=== PATIENT | male | born 1965 | race Caucasian/White ===

== ENCOUNTER 2024-06-16 16:40 | Outpatient (REF) | payer MEDICAID, SELFPAY ==
[2024-06-16 14:48] LABS: ALT 108 U/L (16-63); AST 49 U/L (15-37); Albumin 4.1 g/dL (3.4-5.0); Alkaline Phosphatase 102 U/L (46-116); Anion Gap 8.2 mmol/L (3-11); BUN 9 mg/dL (7-18); Bilirubin, Total 0.28 mg/dL (0.2-1.0); CO2 29.8 mmol/L (21.0-32.0); Chloride 100 mmol/L (98-107); Glucose 143 mg/dL (74-106); Sodium 138 mmol/L (136-145); TSH (W/Ref FT4) 0.03 uIU/mL (0.36-3.74); Total Protein 8.1 g/dL (6.4-8.2)
[2024-06-16 14:57] LABS: Hemoglobin A1C 7.6 % (<5.7)
[2024-06-16 22:49] LABS: PSA, Screening 0.4 ng/mL (<=3.5)
== END 2024-06-16 16:41 | disposition home or self-care (01) ==
LOC: NCHCN 16:40
PROVIDERS: PCP Family Medicine; Visit Provider Family Medicine
DX: I10 Essential (primary) hypertension (principal); E11.21 Type 2 diabetes mellitus with diabetic nephropathy
CPT/HCPCS: 80053; 84153; 83036; 84439; 84443

== ENCOUNTER 2024-09-07 08:37 | Outpatient (REF) | payer MEDICAID, SELFPAY ==
[2024-09-07 15:55] LABS: HCT 40.8 % (40.0-50.0); HGB 13.4 g/dL (13.5-17.5); MCH 29.3 pg (27.0-33.0); MCHC 32.8 % (32.0-36.0); MCV 89 fL (80-95); MPV 9.8 fL (8.0-11.0); Platelet Count 456 10^3/uL (130-400); RBC 4.57 10^6/uL (4.36-5.78); RDW 14.2 % (11.8-14.1); RDW-SD 45.9 fL; WBC 7.53 10^3/uL (4.4-10.8)
[2024-09-07 16:51] LABS: ALT 86 U/L (16-63); AST 38 U/L (15-37); Albumin 3.7 g/dL (3.4-5.0); Alkaline Phosphatase 74 U/L (46-116); BUN 14 mg/dL (7-18); Bilirubin, Total 0.24 mg/dL (0.2-1.0); CREATININE 1.1 mg/dL (0.70-1.30); Calculated LDL 44 mg/dL (<100); Chloride 102 mmol/L (98-107); Cholesterol 102 mg/dL (<200); Estimated GFR 77.33 (mL/min/1.73m2); Glucose 125 mg/dL (74-106); HDL Cholesterol 41 mg/dL (40-60); Potassium 4.3 mmol/L (3.5-5.1); Sodium 137 mmol/L (136-145); TSH 0.64 uIU/mL (0.36-3.74); Triglyceride 85 mg/dL (<150)
[2024-09-07 17:21] LABS: Hemoglobin A1C 7.3 % (<5.7)
== END 2024-09-07 08:38 | disposition home or self-care (01) ==
LOC: NCHCN 08:37
PROVIDERS: PCP Family Medicine; Visit Provider Family Medicine
DX: I73.9 Peripheral vascular disease, unspecified (principal); E11.21 Type 2 diabetes mellitus with diabetic nephropathy; E03.9 Hypothyroidism, unspecified; I10 Essential (primary) hypertension
CPT/HCPCS: 80053; 80061; 85027; 83036; 84443

== ENCOUNTER 2024-09-14 12:17 | Outpatient (REF) | payer MEDICAID, SELFPAY ==
[2024-09-14 15:42] LABS: COMMENT (LAB VIEW ONLY) 137.93 mg/dL; Microalb ug/mg Crea 4.5 ug/mg Cr
== END 2024-09-14 12:18 | disposition home or self-care (01) ==
LOC: NCHCN 12:17
PROVIDERS: PCP Family Medicine; Visit Provider Family Medicine
DX: E11.21 Type 2 diabetes mellitus with diabetic nephropathy (principal)
CPT/HCPCS: 82043; 82570

== ENCOUNTER 2024-12-08 14:02 | Outpatient (REF) | payer MEDICAID, SELFPAY ==
[2024-12-08 15:05] LABS: Abs Immature Grans 0.07 10^3/uL (0.0-0.06); Absolute Basophil Count 0.08 10^3/uL (0.0-0.2); Absolute Lymphocyte Count 2.68 10^3/uL (1.2-3.4); Absolute Monocyte Count 0.27 10^3/uL (0.1-0.8); Absolute Neutrophil Count 5.51 10^3/uL (1.2-6.7); Basophils % 0.9 %; Eosinophils % 1.1 %; HCT 35.8 % (40.0-50.0); HGB 11.4 g/dL (13.5-17.5); Immature Grans % 0.8 %; Lymphocytes % 30.8 %; MCH 29.2 pg (27.0-33.0); MCHC 31.8 % (32.0-36.0); MCV 92 fL (80-95); MPV 9.6 fL (8.0-11.0); Monocytes % 3.1 %; Neutrophils % 63.3 %; RBC 3.91 10^6/uL (4.36-5.78); RDW 15.9 % (11.8-14.1); RDW-SD 53.7 fL; WBC 8.71 10^3/uL (4.4-10.8)
[2024-12-08 15:49] LABS: ALT 89 U/L (16-63); AST 51 U/L (15-37); Albumin 3.1 g/dL (3.4-5.0); Alkaline Phosphatase 177 U/L (46-116); Anion Gap 10.8 mmol/L (3-11); BUN 11 mg/dL (7-18); Bilirubin, Direct 0.1 mg/dL (0.0-0.2); Bilirubin, Total 0.3 mg/dL (0.2-1.0); CO2 27.2 mmol/L (21.0-32.0); Chloride 97 mmol/L (98-107); Estimated GFR 86.16 (mL/min/1.73m2); Glucose 161 mg/dL (74-106); Potassium 4.7 mmol/L (3.5-5.1); Sodium 135 mmol/L (136-145); Total Protein 7.4 g/dL (6.4-8.2)
[2024-12-08 16:21] LABS: Platelet Count 1319 10^3/uL (130-400)
== END 2024-12-08 14:03 | disposition home or self-care (01) ==
LOC: LBN 14:02
PROVIDERS: PCP Family Medicine; Visit Provider Physician Assistant
DX: K35.33 Acute appendicitis with perforation, localized peritonitis, and gangrene, with abscess (principal); Z48.03 Encounter for change or removal of drains; I10 Essential (primary) hypertension; E11.9 Type 2 diabetes mellitus without complications; I73.9 Peripheral vascular disease, unspecified
CPT/HCPCS: 80053; 80076; 85025

== ENCOUNTER 2024-12-09 11:29 | Outpatient (REF) | payer MEDICAID, SELFPAY ==
[2024-12-09 14:17] LABS: HCT 35.8 % (40.0-50.0); HGB 11.6 g/dL (13.5-17.5); MCH 29.1 pg (27.0-33.0); MCHC 32.4 % (32.0-36.0); MCV 90 fL (80-95); MPV 8.8 fL (8.0-11.0); RBC 3.98 10^6/uL (4.36-5.78); RDW 15.4 % (11.8-14.1); RDW-SD 50.6 fL; WBC 7.98 10^3/uL (4.4-10.8)
[2024-12-09 14:46] LABS: Platelet Count 1363 10^3/uL (130-400)
[2024-12-09 15:27] LABS: C Diff PCR Negative (Negative); EPI 027-NAP1-B1 PRESUMPTIVE NEGATIVE
== END 2024-12-09 11:30 | disposition home or self-care (01) ==
LOC: NCHCN 11:29
PROVIDERS: PCP Family Medicine; Visit Provider Family Medicine
DX: R19.7 Diarrhea, unspecified (principal); R79.89 Other specified abnormal findings of blood chemistry
CPT/HCPCS: 85027

== ENCOUNTER 2024-12-13 15:33 | Outpatient (REF) | payer MEDICAID, SELFPAY ==
[2024-12-13 21:47] LABS: HCT 36.1 % (40.0-50.0); HGB 11.7 g/dL (13.5-17.5); MCH 29.4 pg (27.0-33.0); MCHC 32.4 % (32.0-36.0); MCV 91 fL (80-95); MPV 9.1 fL (8.0-11.0); RBC 3.98 10^6/uL (4.36-5.78); RDW-SD 49.9 fL; WBC 6.72 10^3/uL (4.4-10.8)
[2024-12-13 22:37] LABS: Platelet Count 947 10^3/uL (130-400)
== END 2024-12-13 15:34 | disposition home or self-care (01) ==
LOC: NCHCN 15:33
PROVIDERS: PCP Family Medicine; Visit Provider Family Medicine
DX: K35.32 Acute appendicitis with perforation, localized peritonitis, and gangrene, without abscess (principal)
CPT/HCPCS: 85027

== ENCOUNTER 2024-12-20 22:35 | Outpatient (REF) | payer MEDICAID, SELFPAY ==
[2024-12-20 18:17] LABS: Abs Immature Grans 0.01 10^3/uL (0.0-0.06); Absolute Basophil Count 0.11 10^3/uL (0.0-0.2); Absolute Eosinophil Count 0.21 10^3/uL (0.0-0.7); Absolute Lymphocyte Count 2.83 10^3/uL (1.2-3.4); Absolute Monocyte Count 0.41 10^3/uL (0.1-0.8); Absolute Neutrophil Count 3.69 10^3/uL (1.2-6.7); Basophils % 1.5 %; Eosinophils % 2.9 %; HCT 37.1 % (40.0-50.0); HGB 12.5 g/dL (13.5-17.5); Immature Grans % 0.1 %; MCH 30.2 pg (27.0-33.0); MCHC 33.7 % (32.0-36.0); MCV 90 fL (80-95); MPV 10.2 fL (8.0-11.0); Monocytes % 5.6 %; Neutrophils % 50.9 %; Platelet Count 551 10^3/uL (130-400); RBC 4.14 10^6/uL (4.36-5.78); WBC 7.26 10^3/uL (4.4-10.8)
== END 2024-12-20 22:36 | disposition home or self-care (01) ==
LOC: LBN 22:35
PROVIDERS: PCP Family Medicine; Visit Provider Family Medicine
DX: E11.9 Type 2 diabetes mellitus without complications (principal); E03.9 Hypothyroidism, unspecified
CPT/HCPCS: 85025

== ENCOUNTER 2025-01-19 12:16 | Outpatient (REF) | payer MEDICAID, SELFPAY ==
[2025-01-19 15:20] LABS: HCT 37.5 % (40.0-50.0); HGB 12.1 g/dL (13.5-17.5); MCH 29.8 pg (27.0-33.0); MCHC 32.3 % (32.0-36.0); MCV 92 fL (80-95); MPV 9.6 fL (8.0-11.0); Platelet Count 457 10^3/uL (130-400); RBC 4.06 10^6/uL (4.36-5.78); RDW 14.8 % (11.8-14.1); RDW-SD 50.7 fL; WBC 7.51 10^3/uL (4.4-10.8)
[2025-01-19 16:35] LABS: ALT 101 U/L (16-63); AST 45 U/L (15-37); Albumin 4.1 g/dL (3.4-5.0); Alkaline Phosphatase 83 U/L (46-116); Anion Gap 9.1 mmol/L (3-11); BUN 13 mg/dL (7-18); Bilirubin, Total 0.3 mg/dL (0.2-1.0); CO2 29.9 mmol/L (21.0-32.0); CREATININE 0.9 mg/dL (0.70-1.30); Chloride 102 mmol/L (98-107); Estimated GFR 97.78 (mL/min/1.73m2); Glucose 98 mg/dL (74-106); Potassium 4.6 mmol/L (3.5-5.1); Sodium 141 mmol/L (136-145); TSH (W/Ref FT4) 0.19 uIU/mL (0.36-3.74); Total Protein 7.4 g/dL (6.4-8.2)
[2025-01-19 17:18] LABS: FREE T4 1.23 ng/dL (0.76-1.46)
[2025-01-19 18:00] LABS: Hemoglobin A1C 6.3 % (<5.7)
== END 2025-01-19 12:17 | disposition home or self-care (01) ==
LOC: NCHCN 12:16
PROVIDERS: PCP Family Medicine; Visit Provider Family Medicine
DX: I10 Essential (primary) hypertension (principal); E03.9 Hypothyroidism, unspecified; E11.21 Type 2 diabetes mellitus with diabetic nephropathy; R79.89 Other specified abnormal findings of blood chemistry
CPT/HCPCS: 80053; 85027; 83036; 84439; 84443

== ENCOUNTER 2025-03-23 21:38 | Outpatient (REF) | payer MEDICAID, SELFPAY ==
[2025-03-23 14:58] LABS: HCT 40.1 % (40.0-50.0); HGB 13.2 g/dL (13.5-17.5); MCH 29.8 pg (27.0-33.0); MCHC 32.9 % (32.0-36.0); MCV 91 fL (80-95); MPV 9.7 fL (8.0-11.0); Platelet Count 405 10^3/uL (130-400); RBC 4.43 10^6/uL (4.36-5.78); RDW 14.6 % (11.8-14.1); RDW-SD 48.8 fL; WBC 7.06 10^3/uL (4.4-10.8)
[2025-03-23 15:26] LABS: Hemoglobin A1C 6.3 % (<5.7)
[2025-03-23 15:48] LABS: ALT 84 U/L (16-63); AST 37 U/L (15-37); Albumin 3.9 g/dL (3.4-5.0); Alkaline Phosphatase 70 U/L (46-116); Anion Gap 9.6 mmol/L (3-11); BUN 13 mg/dL (7-18); Bilirubin, Total 0.2 mg/dL (0.2-1.0); CO2 26.4 mmol/L (21.0-32.0); Calcium 9.3 mg/dL (8.5-10.1); Chloride 101 mmol/L (98-107); Estimated GFR 86.16 (mL/min/1.73m2); Glucose 146 mg/dL (74-106); Potassium 4.3 mmol/L (3.5-5.1); Sodium 137 mmol/L (136-145); TSH 1.66 uIU/mL (0.36-3.74); Total Protein 7.1 g/dL (6.4-8.2)
== END 2025-03-23 21:39 | disposition home or self-care (01) ==
LOC: NCHCN 21:38
PROVIDERS: PCP Family Medicine; Visit Provider Family Medicine
DX: E03.9 Hypothyroidism, unspecified (principal); R79.89 Other specified abnormal findings of blood chemistry; E11.21 Type 2 diabetes mellitus with diabetic nephropathy
CPT/HCPCS: 80053; 85027; 83036; 84443